=== PATIENT | female | born 1945 | race Two or more races ===

== ENCOUNTER 2024-08-18 18:46 | Inpatient (IN) | payer OTHER ==
[~2024-08-18] VITALS: Ht 152.4 cm; Wt 47.6 kg
[2024-08-18 19:13] LABS: BASOPHILS # (AUTO) 0.1 K/UL (0.0-0.2); BASOPHILS % (AUTO) 0.7 % (0.0-2.0); EOSINOPHILS # (AUTO) 0.2 K/uL (0.0-0.7); EOSINOPHILS % (AUTO) 2.3 % (0.0-7.0); HEMATOCRIT 44.3 % (31.2-41.9); HEMOGLOBIN 15.1 g/dL (10.9-14.3); LYMPHOCYTES # (AUTO) 2.2 K/uL (0.8-4.8); LYMPHOCYTES % (AUTO) 22.8 % (20.5-51.5); MEAN CORPUSCULAR HEMOGLOBIN 32.2 uug (24.7-32.8); MEAN CORPUSCULAR HGB CONC 34 g/dL (32.3-35.6); MEAN CORPUSCULAR VOLUME 94.2 fL (75.5-95.3); MONOCYTES # (AUTO) 0.6 K/uL (0.1-1.30); MONOCYTES % (AUTO) 6.6 % (0.0-11.0); NEUTROPHILS # (AUTO) 6.6 K/uL (1.8-8.9); NEUTROPHILS % (AUTO) 67.6 % (38.5-71.5); PLATELET COUNT (AUTO) 198 K/uL (179-408); RED CELL DISTRIBUTION WIDTH 12.7 % (12.3-17.7); WHITE BLOOD COUNT (AUTO) 9.8 K/uL (3.8-11.8)
[2024-08-18 19:26] LABS: CALCIUM 9.5 mg/dL (8.5-10.1); CARBON DIOXIDE 30 mmol/L (21-32); CHLORIDE 107 mmol/L (98-107); GLUCOSE 169 mg/dL (74-106); POTASSIUM 4.7 mmol/L (3.5-5.1); SODIUM SERUM 146 mmol/L (136-145); UREA NITROGEN, BLOOD 27 mg/dL (7-18)
[2024-08-18 19:39] LABS: ALANINE AMINOTRANSFERASE 19 U/L (14-59); ALBUMIN 3.7 g/dL (3.4-5.0); ALKALINE PHOSPHATASE 111 U/L (50-136); ASPARTATE AMINOTRANSFERASE 22 U/L (15-37); BILIRUBIN,DIRECT 0.2 mg/dL (0.0-0.2); BILIRUBIN,TOTAL 1.1 mg/dL (0.2-1.0); NT-PRO BNP 102 pg/mL (0-125); TOTAL PROTEIN, SERUM 7.1 g/dL (6.4-8.2)
[2024-08-18] MEDS ORDERED: ONDANSETRON 4 MG/2 ML VIAL ONE (19:41)
[2024-08-18] MEDS ORDERED: HYDROMORPHONE 1 MG/1 ML DISP.SYRIN ONE (19:42)
[2024-08-18] MEDS: HYDROMORPHONE 1 MG/1 ML DISP.SYRIN IV ONE (19:46)
[2024-08-18] MEDS: IV NORMAL SALINE 1000 ML BAG IV ONE (19:46)
[2024-08-18] MEDS: ONDANSETRON 4 MG/2 ML VIAL IV ONE (19:47)
[2024-08-18] MEDS ORDERED: MAGNESIUM HYDROXIDE 30 ML LIQUID UDC PO PRN (23:00)
[2024-08-18] MEDS ORDERED: REMEDY ESSENTIAL ZINC PASTE 113 GM TP PRN (23:00)
[2024-08-18] MEDS ORDERED: ONDANSETRON 4 MG/2 ML VIAL IV PRN (23:00)
[2024-08-19 01:30] VITALS: BP 159/64; TEMP 98.6; O2SAT 95
[2024-08-19] MEDS: MORPHINE SULFATE 4 MG/1 ML DISP.SYRIN IV PRN (03:14)
[2024-08-19 06:00] VITALS: BP 150/47; TEMP 98; O2SAT 95
[2024-08-19 07:04] LABS: BASOPHILS % (AUTO) 0.5 % (0.0-2.0); EOSINOPHILS # (AUTO) 0.1 K/uL (0.0-0.7); EOSINOPHILS % (AUTO) 1.1 % (0.0-7.0); HEMATOCRIT 35.1 % (31.2-41.9); HEMOGLOBIN 12.5 g/dL (10.9-14.3); MEAN CORPUSCULAR HEMOGLOBIN 33.3 uug (24.7-32.8); MEAN CORPUSCULAR HGB CONC 36 g/dL (32.3-35.6); MEAN CORPUSCULAR VOLUME 93.4 fL (75.5-95.3); MONOCYTES # (AUTO) 0.7 K/uL (0.1-1.30); MONOCYTES % (AUTO) 8.1 % (0.0-11.0); NEUTROPHILS # (AUTO) 5.7 K/uL (1.8-8.9); NEUTROPHILS % (AUTO) 67.3 % (38.5-71.5); PLATELET COUNT (AUTO) 156 K/uL (179-408); RED BLOOD CELL COUNT(AUTO) 3.75 MIL/uL (3.63-4.92); RED CELL DISTRIBUTION WIDTH 12.3 % (12.3-17.7); WHITE BLOOD COUNT (AUTO) 8.5 K/uL (3.8-11.8)
[2024-08-19 07:17] LABS: CALCIUM 8.5 mg/dL (8.5-10.1); CARBON DIOXIDE 27 mmol/L (21-32); CHLORIDE 110 mmol/L (98-107); CREATININE 0.9 mg/dL (0.6-1.3); GLUCOSE 97 mg/dL (74-106); MAGNESIUM 1.9 mg/dL (1.8-2.4); PHOSPHOROUS 4.1 mg/dL (2.5-4.9); POTASSIUM 4.6 mmol/L (3.5-5.1); SODIUM SERUM 143 mmol/L (136-145); UREA NITROGEN, BLOOD 17 mg/dL (7-18)
[2024-08-19 07:19] LABS: DIFFERENTIAL COMMENT 1
[2024-08-19] MEDS ORDERED: LEVO50TA8 PO (11:48)
[2024-08-19] MEDS ORDERED: LISI40TA13 PO (11:48)
[2024-08-19] MEDS ORDERED: AMLO5TAB4 PO (11:49)
[2024-08-19] MEDS ORDERED: ERGO500040 PO (11:49)
[2024-08-19] MEDS ORDERED: ATOR10TA PO (11:50)
[2024-08-19] MEDS ORDERED: DONE5TAB34 PO (11:50)
[2024-08-19] MEDS ORDERED: ASPI-1101 PO (11:51)
[2024-08-19 12:00] VITALS: BP 139/44; TEMP 99.9
[2024-08-19] MEDS: ACETAMINOPHEN 325 MG TABLET PO PRN (15:02)
[2024-08-19 16:07] VITALS: BP 139/64; TEMP 98.7; O2SAT 92
== END 2024-08-19 19:20 | disposition short-term general hospital (02) | DRG 340 ==
LOC: ER 18:47 → MEDSURG3 22:14
PROVIDERS: ADMIT Internal Medicine; ATTEND Internal Medicine
DX: S72.145A Nondisplaced intertrochanteric fracture of left femur, initial encounter for closed fracture (principal); I48.20 Chronic atrial fibrillation, unspecified; F03.90 Unspecified dementia, unspecified severity, without behavioral disturbance, psychotic disturbance, mood disturbance, and anxiety; I44.7 Left bundle-branch block, unspecified; W01.0XXA Fall on same level from slipping, tripping and stumbling without subsequent striking against object, initial encounter; Y92.89 Other specified places as the place of occurrence of the external cause; E03.9 Hypothyroidism, unspecified; I10 Essential (primary) hypertension; E78.5 Hyperlipidemia, unspecified
CPT/HCPCS: 36415; 71045; 73502; 83735; 84100; 84484; 85025; 85730; 86850; 86870; 86900; 86901; 93307; G0378; J1171; J2270; J2405; J7040